=== PATIENT | male | born 2000 | race African-American/Black ===

== ENCOUNTER 2022-10-14 03:45 | Emergency (ER) | payer OTHER ==
[~2022-10-14] VITALS: Ht 180.3 cm; Wt 124.0 kg
[2022-10-14 06:22] VITALS: BP 133/76
[2022-10-14] MEDS ORDERED: CIPROFLOXACN500 MG PO (06:30)
== END 2022-10-14 06:30 | disposition home or self-care (01) | DRG 605 ==
LOC: ED 03:45
DX: S90.511A Abrasion, right ankle, initial encounter (principal); S70.211A Abrasion, right hip, initial encounter; S40.211A Abrasion of right shoulder, initial encounter; V49.50XA Passenger injured in collision with unspecified motor vehicles in traffic accident, initial encounter; S50.812A Abrasion of left forearm, initial encounter; S50.811A Abrasion of right forearm, initial encounter; T14.8XXA Other injury of unspecified body region, initial encounter